=== PATIENT | male | born 1985 | race Two or more races ===

== ENCOUNTER 2018-03-25 22:08 | Emergency (ER) | payer OTHER ==
[~2018-03-25] VITALS: Ht 177.8 cm; Wt 77.1 kg
[2018-03-25 22:11] VITALS: BP 155/107
[2018-03-25] MEDS ORDERED: IBUPROFEN 600 MG TABLET PO ONE ×2 (22:42→23:00)
--- NOTE | 2018-03-25 22:45 | NUR ---
RADIOLOGY BEDSIDE FOR X-RAY
--- NOTE | 2018-03-25 22:48 | NUR ---
EMT BEDSIDE FOR WOUND CARE
== END 2018-03-26 00:26 | disposition home or self-care (01) ==
LOC: ER 22:10
DX: S97.112A Crushing injury of left great toe, initial encounter (principal); W24.0XXA Contact with lifting devices, not elsewhere classified, initial encounter; Y93.43 Activity, gymnastics; Y92.89 Other specified places as the place of occurrence of the external cause; Y99.8 Other external cause status
CPT/HCPCS: 73630; 99284; A4606; A6402; Z7610